=== PATIENT | male | born 1955 | race African-American/Black ===

== ENCOUNTER 2019-08-29 23:47 | Emergency (ER) | payer OTHER ==
[~2019-08-29] VITALS: Ht 165.1 cm; Wt 71.7 kg
[2019-08-30 00:11] VITALS: BP 143/104
[2019-08-30] MEDS ORDERED: DOXYCYCLINE HYCLATE 100 MG TABLET ONE (00:19)
[2019-08-30] MEDS ORDERED: oxyCODONE/APAP 5/325 1 TAB TABLET ONE (00:20)
[2019-08-30] MEDS ORDERED: DOXY100C2 PO (00:21)
[2019-08-30] MEDS ORDERED: HYDR-3165 PO (00:21)
[2019-08-30] MEDS ORDERED: MUPI22OI2 TP (00:21)
[2019-08-30] MEDS ORDERED: NYST15CR TP (00:21)
--- NOTE | 2019-08-30 00:25 | PHYS DOC ---
Past History Past Medical History: No Pertinent History Past Surgical History: No Surgical History Alcohol Use: None Drug Use: None Adult General Chief Complaint Chief Complaint: PENIS PROBLEM HPI HPI Patient is a 64-year-old male who presents to the emergency department for evaluation states that for the past 2 weeks, he has had swelling of his extended foreskin, which has become painful. He has not had any fevers or chills. He has had a small amount of liquid drainage from the area. He saw his primary physician 2 days ago, and was prescribed prednisone, and Bactrim, which have not resulted in improvement in the symptoms. Symptoms are no worse, but no better, so he presents for evaluation. The area is tender to touch, particularly along the foreskin. There are no other alleviating or exacerbating factors to his symptoms. Review of Systems Review of Systems Constitutional: Denies fever or chills [] Eyes: Denies change in visual acuity, redness, or eye pain [] HENT: Denies nasal congestion or sore throat [] : Denies dysuria or hematuria [] Musculoskeletal: Denies back pain or joint pain [] Integument: Denies rash or skin lesions [] Allergies Allergies Allergies Coded Allergies Type Severity Reaction Last Updated Verified No Known Drug Allergies 11/19/15 No Physical Exam Physical Exam PHYSICAL EXAM: CONSTITUTIONAL: Well developed, well nourished HEAD: normocephalic, atraumatic EENT: PERRL, EOMI. Conjunctivae normal color, sclerae non-icteric; moist mucous membranes. NECK: Supple, non-tender; no meningismus. LUNGS: Lungs CTA, breathing even and unlabored. Normal air movement. HEART: Regular rate and rhythm, no murmur CHEST: No deformity; non-tender ABDOMEN: The abdomen is soft, and non-tender, no masses or bruits. EXTREM: Normal ROM; no deformity, no calf tenderness. Normal pulses palpable in all extremities. There is no pedal edema. SKIN: No rash; no diaphoresis NEURO: Alert; normal speech and cognition; CN's grossly intact; strength grossly intact without focal deficit. BACK: No CVA TTP. GENITOURINARY: Testicles are normal and nontender bilaterally. There is a small 1 cm sized nodule, nontender, nonerythematous, on the dorsal shaft of the penis, at the base. The foreskin is erythematous and edematous, and extended, and unable to be retracted, preventing visualization of the glans. The remainder of the shaft of the penis is unremarkable. There is mild inguinal lymphadenopathy. EKG EKG [] Radiology/Procedures Radiology/Procedures [] Course & Med Decision Making Course & Med Decision Making I will change the patient from Bactrim to doxycycline, will add both a topical antibacterial an antifungal, and stressed the importance of close urology follow-up. Dragon Disclaimer Dragon Disclaimer This electronic medical record was generated, in whole or in part, using a voice recognition dictation system. Departure Departure: Impression: Primary Impression: Balanoposthitis Disposition: HOME, SELF-CARE Condition: STABLE Referrals: ANJEL REID (PCP) Patient Instructions: Tobi Phimosis Additional Instructions: Call [phone], to schedule an appointment to be seen with urology. Keep the area clean and dry. Stop taking the previously prescribed Bactrim and prednisone, begin taking the new medications. Scripts Hydrocodone Bit/Acetaminophen (NORCO 5-325 TABLET) 1 Each Tablet 1 TAB PO Q6H for pain, #15 TAB Prov: WILBUR HAWKINS MD 08/30/19 Nystatin (NYSTATIN) 15 Gm Cream..g. 1 JON TP TID for -, #30 GM Prov: WILBUR HAWKINS MD 08/30/19 Mupirocin (MUPIROCIN) 22 Gm Oint...g. 1 JON TP TID for - for 7 Days, #22 GM Prov: WILBUR HAWKINS MD 08/30/19 Doxycycline Hyclate (DOXYCYCLINE HYCLATE) 100 Mg Capsule 1 CAP PO BID for -, #20 CAP Prov: WILBUR HAWKINS MD 08/30/19 WILBUR HAWKINS MD Aug 30, 2019 00:24
[2019-08-30] MEDS ORDERED: oxyCODONE/APAP 5/325 1 TAB TABLET PO ONE (00:30)
[2019-08-30] MEDS ORDERED: DOXYCYCLINE HYCLATE 100 MG TABLET PO ONE (00:30)
== END 2019-08-30 00:30 | disposition home or self-care (01) ==
LOC: ER 23:47
DX: N47.6 Balanoposthitis (principal)
CPT/HCPCS: 99283